=== PATIENT | female | born 1990 | race Caucasian/White ===

== ENCOUNTER 2017-08-28 18:22 | Emergency (ER) | payer BC, OTHER ==
[~2017-08-28] VITALS: Ht 162.6 cm; Wt 65.0 kg
[~2017-08-28 18:22] MED LIST: PREN1TAB62 PO
[2017-08-28 18:45] VITALS: Ht 162.6 cm; Wt 65.0 kg
[2017-08-28] MEDS ORDERED: HYDROCODONE/APAP (5/325) TAB PO ONE (20:30)
--- NOTE | 2017-08-28 21:00 | ERD ---
ER Documentation Chief Complaint Chief Complaint right shoulder pain after lifting heavy object HPI This is a 26-year-old female that presents to the ER complaining of right shoulder pain that started 4-5 days ago after she lifted something heavy at work. Patient radiates down her entire arm. She states that she feels cramping sensations down her arm, however he denies any numbness tingling or weakness of her upper extremity. Pain is intermittent, she tried Advil for the pain however did not make it better. Pain is made worse whenever she lifts something heavy. Patient denies any fevers or chills. She denies any chest pain or shortness of breath. ROS 12 point review of systems was done, all negative except per HPI. Medications Home Meds Active Scripts Orphenadrine Citrate (Norflex) 100 Mg Tablet.sa, 100 MG PO BID for 7 Days, TAB.SA Prov:MIKAYLA AGUILAR 08/28/17 Naproxen* (Naprosyn*) 500 Mg Tablet, 500 MG PO BID Y for PAIN AND/OR INFLAMMATION, #30 TAB Prov:MIKAYLA AGUILAR 08/28/17 Reported Medications Vit-Iron Fumarate-FA ( Vitamin Tablet) 1 Each Tablet, 1 TAB PO DAILY, TAB 12/30/15 Allergies Allergies: Coded Allergies: No Known Allergy (Unverified , 02/22/16) PMhx/Soc Medical and Surgical Hx: pt denies Medical Hx, pt denies Surgical Hx History of Surgery: No Anesthesia Reaction: No Hx Neurological Disorder: No Hx Respiratory Disorders: No Hx Cardiac Disorders: No Hx Psychiatric Problems: No Hx Miscellaneous Medical Probl: No Hx Alcohol Use: No Hx Substance Use: No Hx Tobacco Use: No Smoking Status: Never smoker Physical Exam Vitals Vital Signs Date Time Temp Pulse Resp B/P Pulse Ox O2 Delivery O2 Flow Rate FiO2 08/28/17 18:45 97.8 76 20 128/73 100 Physical Exam GENERAL: The patient is well developed and appropriate for usual state of health , in no apparent distress. HEENT: Atraumatic. CHEST: Clear to auscultation bilaterally. There are no rales, wheezes or rhonchi. HEART: Regular rate and rhythm. No murmurs, clicks, rubs or gallops. EXTREMITIES: The right shoulder is without obvious asymmetry or deformity when compared to the left shoulder. No surface trauma, echymosis or crepitus. No bony deformity or prominence over the humeral head. No erythema, warmth, swelling. NT to palpation of the bicipital groove or soft tissues. NT to palpation of the muscles of the sternocleidomastoid, pectorals, biceps/triceps, deltoid, trapezius, rhomboid, latissimus dorsi, rotator cuff. No pain or limitation with active or passive abduction/adduction, internal/external rotation, flexion/extension. Negative "empty can" and "drop arm" test. No axillary tenderness or lymphadenopathy. Normal sensation over the deltoid and ability to flex arm at elbow indicated intact axillary nerve function. Distal motor and neurovascular status intact. Painful elbow flexion extension painful wrist flexion and extension. Tenderness to palpation to the elbow or wrist, and no redness, swelling or warmth to touch. NEURO: Alert and oriented SKIN: The skin is warm and dry. Results 24 hrs Current Medications Medications (Trade) Dose Ordered Sig/Dewayne Route PRN Reason Start Time Stop Time Status Last Admin Dose Admin Acetaminophen/ Hydrocodone Bitart ([place] (5/325)) 1 tab ONCE ONCE PO 08/28/17 20:30 08/28/17 20:31 DC 08/28/17 21:18 [place] [id number] Radiology Main Line: [phone] DIAGNOSTIC IMAGING REPORT Patient: BAILEY DEJESUS : 1990 Age: 26 Sex: F MR #: [id number] DOS: 08/28/17 0000 Ordering MD: MIKAYLA AGUILAR PA-C Location: [facility] Room/Bed: PROCEDURE: XR Right Shoulder CLINICAL INDICATION: Pain TECHNIQUE: AP internal and external rotation views and a Y-view were submitted. COMPARISON: None FINDINGS: Osseous structures: appear well mineralized and intact with no fracture or destructive process identified. Joint spaces: The glenohumeral joint appears unremarkable. The AC joint appears normal. Soft tissues: appear unremarkable. IMPRESSION: Unremarkable right shoulder. R Mary Kate, Physician Date Time Electronically viewed and signed by Physician Jacquelin on 08/28/2017 21:36 RH/ CC: MIKAYLA AGUILAR [place] [address] Radiology Main Line: [phone] DIAGNOSTIC IMAGING REPORT Patient: BAILEY DEJESUS : 1990 Age: 26 Sex: F MR #: [id number] DOS: 08/28/17 0000 Ordering MD: MIKAYLA AGUILAR PA-C Location: [facility] Room/Bed: PROCEDURE: CR Right Elbow CLINICAL INDICATION: Pain TECHNIQUE: AP, lateral, and an oblique radiographs were submitted. COMPARISON: None FINDINGS: Osseous Structures: The osseous elements appear well mineralized and intact. Joint Spaces: The joint spaces are well maintained. No joint effusion is evident. Soft Tissues: Appear unremarkable. IMPRESSION: Unremarkable right elbow series. Physician Jacquelin Date Time Electronically viewed and signed by Physician Jacquelin on 08/28/2017 21:39 RH/ CC: MIKAYLA AGUILAR [place] [address] Radiology Main Line: [phone] DIAGNOSTIC IMAGING REPORT Patient: BAILEY DEJESUS : 1990 Age: 26 Sex: F MR #: [id number] DOS: 08/28/17 0000 Ordering MD: MIKAYLA AGUILAR PA-C Location: [facility] Room/Bed: PROCEDURE: XR Right Wrist with Navicular View CLINICAL INDICATION: Pain TECHNIQUE: PA, lateral, and oblique views as well as a carpal navicular view were submitted. COMPARISON: None FINDINGS: Osseous structures: appear well mineralized and intact with no fracture or destructive process identified. Joint spaces: are well maintained with no significant erosions or spurring identified. Soft tissues: appear unremarkable. IMPRESSION: Unremarkable right wrist with navicular view. Physician Jacquelin Date Time Electronically viewed and signed by Physician Jacquelin on 08/28/2017 21:45 RH/ CC: MIKAYLA AGUILAR Procedures/MDM Differential Diagnosis: AC separation, rotator cuff tear, bursitis, tendonitis, anterior/posterior shoulder dislocation, c-spine injury, peripheral nerve injury , AAA/TAD. At this time etiology of shoulder pain is unknown, her pain is likely due to heavy lifting at work. X-rays were negative for fracture dislocation. Patient is afebrile and well-appearing suspicion for infectious etiology such as septic joint or osteomyelitis is low. Patient has full range of motion of her upper extremity is neurovascularly intact. She will be sent home with ibuprofen and with Norflex. Patient needs to follow-up with her primary care doctor within 1-2 days and her see an orthopedic doctor if symptoms do not resolve. Return to ER sooner if symptoms worsen. Medical decision making sure with the patient she understands and agrees with plan. Departure Diagnosis: Primary Impression: Shoulder pain Condition: Stable MIKAYLA AGUILAR Aug 28, 2017 21:00
--- NOTE | 2017-08-28 21:37 | RADRPT ---
PROCEDURE: XR Right Shoulder CLINICAL INDICATION: Pain TECHNIQUE: AP internal and external rotation views and a Y-view were submitted. COMPARISON: None FINDINGS: Osseous structures: appear well mineralized and intact with no fracture or destructive process iden tified. Joint spaces: The glenohumeral joint appears unremarkable. The AC joint appears normal. Soft tissues: appear unremarkable. IMPRESSION: Unremarkable right shoulder. Physician Jacquelin Date Time Electronically viewed and signed by Nathalia Hartmann Physician on 08/28/2017 21:36 /
--- NOTE | 2017-08-28 21:39 | RADRPT ---
PROCEDURE: CR Right Elbow CLINICAL INDICATION: Pain TECHNIQUE: AP, lateral, and an oblique radiographs were submitted. COMPARISON: None FINDINGS: Osseous Structures: The osseous elements appear well mineralized and intact. Joint Spaces: The joint spaces are well maintained. No joint effusion is evident. Soft Tissues: Appear unremarkable. IMPRESSION: Unremarkable right elbow series. Physician Jacquelin Date Time Electronically viewed and signed by Nathalia Hartmann Physician on 08/28/2017 21:39 /
--- NOTE | 2017-08-28 21:45 | RADRPT ---
PROCEDURE: XR Right Wrist with Navicular View CLINICAL INDICATION: Pain TECHNIQUE: PA, lateral, and oblique views as well as a carpal navicular view were submitted. COMPARISON: None FINDINGS: Osseous structures: appear well mineralized and intact with no fracture or destructive process iden tified. Joint spaces: are well maintained with no significant erosions or spurring identified. Soft tissues: appear unremarkable. IMPRESSION: Unremarkable right wrist with navicular view. Physician Jacquelin Date Time Electronically viewed and signed by Nathalia Hartmann Physician on 08/28/2017 21:45 RH/
[2017-08-28] MEDS ORDERED: NAPR-260 PO (21:53)
[2017-08-28] MEDS ORDERED: ORPH100T PO (21:53)
== END 2017-08-28 22:04 | disposition home or self-care (01) ==
LOC: FTE 18:22
DX: M25.511 Pain in right shoulder (principal)
CPT/HCPCS: 73030; 73080; 73110; Z7502; Z7610

== ENCOUNTER 2017-08-31 21:50 | Emergency (ER) | payer OTHER ==
[~2017-08-31] VITALS: Ht 170.2 cm; Wt 68.7 kg
[~2017-08-31 21:50] MED LIST changes: +NAPR-260 PO; +ORPH100T PO
[2017-08-31 21:58] VITALS: Ht 170.2 cm; Wt 68.7 kg
[2017-09-01] MEDS ORDERED: PRED50TA PO
--- NOTE | 2017-09-01 00:31 | ERD ---
ER Documentation Chief Complaint Chief Complaint REQUESTING WRK NOTE FROM THU TO BE CLEARED TO GO BACK TO WORK HPI 27-year-old female presents here to emergency department for complaints of hoarseness of the voice sore throat that started yesterday. Patient is complaining of pain, throbbing pain, 6/10 scale, as was upon swallowing. Patient also once a note for work, patient was seen here 3 days ago for shoulder strain, was advised to rest the right shoulder with needs a note for work for restriction of how much weight she can carry. Patient states that the naproxen is helping with the pain in the shoulder. Patient denies any new injury. Patient denies any numbness or tingling. Patient denies any fever or chills. ROS All systems reviewed and are negative except as per history of present illness. Medications Home Meds Active Scripts Prednisone* (Prednisone*) 50 Mg Tablet, 50 MG PO DAILY, #5 TAB Prov:CHELSIE JIM NP 09/01/17 Orphenadrine Citrate (Norflex) 100 Mg Tablet.sa, 100 MG PO BID for 7 Days, TAB.SA Prov:MIKAYLA AGUILAR 08/28/17 Naproxen* (Naprosyn*) 500 Mg Tablet, 500 MG PO BID Y for PAIN AND/OR INFLAMMATION, #30 TAB Prov:MIKAYLA AGUILAR 08/28/17 Reported Medications Vit-Iron Fumarate-FA ( Vitamin Tablet) 1 Each Tablet, 1 TAB PO DAILY, TAB 12/30/15 Allergies Allergies: Coded Allergies: No Known Allergy (Unverified , 02/22/16) PMhx/Soc Medical and Surgical Hx: pt denies Medical Hx, pt denies Surgical Hx History of Surgery: No Anesthesia Reaction: No Hx Neurological Disorder: No Hx Respiratory Disorders: No Hx Cardiac Disorders: No Hx Psychiatric Problems: No Hx Miscellaneous Medical Probl: No Hx Alcohol Use: No Hx Substance Use: No Hx Tobacco Use: No Smoking Status: Never smoker FmHx Family History: No coronary disease, No diabetes, No other Physical Exam Vitals Vital Signs Date Time Temp Pulse Resp B/P Pulse Ox O2 Delivery O2 Flow Rate FiO2 08/31/17 21:58 98.4 72 20 119/65 99 Physical Exam GENERAL: The patient is well developed and appropriate for usual state of health, in no apparent distress. HEENT: Atraumatic. Ears: Normal tympanic membrane, no erythema or bulging. No ear canal swelling. No ear discharge. Nose: normal nasal turbinates, no erythema or swelling. Normal nasal discharge. Throat: oropharynx clear. No tonsillar swelling or tonsillar exudates. No lymphadenopathy. Noted hoarseness of the voice. CHEST: Clear to auscultation bilaterally. There are no rales, wheezes or rhonchi. HEART: Regular rate and rhythm. No murmurs, clicks, rubs or gallops. No S3 or S4. ABDOMEN: Soft, nontender and nondistended. Good bowel sounds. No rebound or guarding. No gross peritonitis. No gross organomegaly or masses. No Rodriguez sign or McBurney point tenderness. BACK: No midline or flank tenderness. EXTREMITIES: Able to do full range of motion of the right shoulder without any restriction. Equal pulses bilaterally. There is no peripheral clubbing, cyanosis or edema. No focal swelling or erythema. Full range of motion. Grossly neurovascularly intact. NEURO: Alert and oriented. Cranial nerves 2-12 intact. Motor strength in all 4 extremities with 5/5 strength. Sensation grossly intact. Normal speech and gait. SKIN: There is no apparent rash or petechia. The skin is warm and dry. HEMATOLOGIC AND LYMPHATIC: There is no evidence of excessive bruising or lymphedema. No gross cervical, axillary, or inguinal lymphadenopathy. Procedures/MDM Medical decision making: Patient symptoms was likely is consistent with laryngitis, no symptoms of any strep throat, no oral airway obstruction, no stridor noted. Low suspicion for any acute bacterial infection. No symptoms of epiglottitis. No symptoms of respiratory distress at this time. Patient also has right shoulder strain, had radiology exams done from previous visits, this was reviewed, they were all normal. Patient was given a note for work to avoid heavy lifting, more than 20 pounds for at least 10 days after the injury. Patient was advised to rest the affected area. Patient was given prescription for prednisone to help with inflammation of the laryngeal area, patient was advised to continue taking naproxen, do saltwater gargles and rest. Patient was advised to return to emergency department for any worsening symptoms. Disposition: Home. Stable. Departure Diagnosis: Primary Impression: Laryngitis Additional Impression: Right shoulder strain Encounter type: initial encounter Qualified Code: S46.911A - Strain of right shoulder, initial encounter Condition: Stable Patient Instructions: Laryngitis Additional Instructions: continue naproxen, salt water gargles CHELSIE JIM NP Sep 01, 2017 00:31
== END 2017-09-01 00:20 | disposition home or self-care (01) ==
LOC: FTE 21:50
DX: J04.0 Acute laryngitis (principal); S46.911A Strain of unspecified muscle, fascia and tendon at shoulder and upper arm level, right arm, initial encounter; X58.XXXA Exposure to other specified factors, initial encounter; Y92.9 Unspecified place or not applicable
CPT/HCPCS: 99283